=== PATIENT | female | born 1940 | race Caucasian/White ===

== ENCOUNTER 2022-08-16 17:41 | Inpatient (IN) | payer MEDICARE, BC ==
[2022-08-16] MEDS ORDERED: Sodium Chloride 0.9% 1,000 ML IV ONE (17:50)
[2022-08-16] MEDS ORDERED: Pantoprazole 40 MG Vial IVPUSH ONE (17:50)
[2022-08-16] MEDS ORDERED: Lactated Ringers 1,000 ML IV ONE ×2 (17:50→18:41)
[2022-08-16] MEDS ORDERED: Ondansetron 4 MG/2 ML SDV IVPUSH ONE (17:53)
[2022-08-16] MEDS ORDERED: Phytonadione 5 MG in Sodium Chloride 0.9% 50 ML IV ONE (17:57)
[2022-08-16 18:07] LABS: ESTIMATED GFR 38 mL/min (>60)
[2022-08-16] MEDS ORDERED: Phytonadione 10 MG in Sodium Chloride 0.9% 50 ML IV ONE (18:40)
[2022-08-16 19:19] LABS: CORONAVIRUS COVID-19 NAA NEGATIVE (NEGATIVE)
[2022-08-16] MEDS ORDERED: Oseltamivir 75 MG Cap PO ONE (20:43)
[2022-08-16] MEDS ORDERED: Albuterol/Ipratropium 3.0-0.5 MG/3 ML Neb Soln NEB ONE (21:03)
[2022-08-16] MEDS ORDERED: Albuterol/Ipratropium 3.0-0.5 MG/3 ML Neb Soln ONE (21:03)
[2022-08-16] MEDS ORDERED: methylPREDNISolone Sodium Succinate 125 MG/2 ML SDV IVPUSH ONE (21:56)
[2022-08-16] MEDS ORDERED: cefTRIAXone 1 GM Vial IVPUSH SCH (22:00)
[2022-08-17 00:37] LABS: BASE EXCESS VENOUS,POC -3 mmol/L (-2 - 3+); PCO2 VENOUS,POC 41 mmHg (41-51); PH VENOUS,POC 7.35 pH Units (7.32-7.43)
[2022-08-17] MEDS ORDERED: hydrOXYzine HCl 25 MG Tab PO ONE (00:37)
[2022-08-17] MEDS ORDERED: Acetaminophen 500 MG Tab PO ONE (00:37)
[2022-08-17] MEDS ORDERED: cefTRIAXone 1 GM Vial IVPUSH SCH (01:00)
[2022-08-17] MEDS ORDERED: Ondansetron 4 MG/2 ML SDV IVPUSH PRN (01:05)
[2022-08-17] MEDS ORDERED: Magnesium Hydroxide 400 MG/5 ML Susp 30 ML Cup PO PRN (01:06)
[2022-08-17] MEDS ORDERED: Bisacodyl 5 MG Tab PO PRN (01:06)
[2022-08-17] MEDS ORDERED: Oseltamivir 75 MG Cap ONE (02:34)
[2022-08-17] MEDS ORDERED: methylPREDNISolone Sodium Succinate 125 MG/2 ML SDV ONE (02:35)
[2022-08-17] MEDS: Albuterol/Ipratropium 3.0-0.5 MG/3 ML Neb Soln NEB SCH ×4 (03:32→21:16)
[2022-08-17] MEDS ORDERED: methylPREDNISolone Sodium Succinate 125 MG/2 ML SDV IVPUSH SCH (06:00)
[2022-08-17 06:53] LABS: ESTIMATED GFR 50 mL/min (>60)
[2022-08-17] MEDS: Sodium Chloride 0.9% 10 ML Syringe FLUSH PRN ×3 (10:22→19:05)
[2022-08-17] MEDS: Morphine 2 MG/ML SYRINGE IVPUSH PRN ×2 (10:22→16:55)
[2022-08-17] MEDS: methylPREDNISolone Sodium Succinate 125 MG/2 ML SDV IVPUSH SCH ×2 (10:26→19:06)
[2022-08-17] MEDS: Acetaminophen 325 MG Tab PO PRN (18:31)
[2022-08-17] MEDS: Pantoprazole 40 MG Vial IVPUSH SCH (19:06)
[2022-08-17] MEDS ORDERED: Melatonin 3 MG Tab PO PRN (20:48)
[2022-08-17] MEDS: hydrOXYzine HCl 10 MG Tab PO SCH (21:16)
[2022-08-17] MEDS: Oseltamivir 30 MG Cap PO SCH (21:17)
[2022-08-18] MEDS: Morphine 2 MG/ML SYRINGE IVPUSH PRN (00:07)
[2022-08-18] MEDS: Sodium Chloride 0.9% 10 ML Syringe FLUSH PRN ×4 (00:08→20:09)
[2022-08-18] MEDS: Albuterol/Ipratropium 3.0-0.5 MG/3 ML Neb Soln NEB SCH ×4 (03:48→20:12)
[2022-08-18] MEDS: methylPREDNISolone Sodium Succinate 125 MG/2 ML SDV IVPUSH SCH ×3 (03:56→20:08)
[2022-08-18 06:45] LABS: ESTIMATED GFR 64 mL/min (>60)
[2022-08-18] MEDS: Folic Acid 1 MG Tab PO SCH (08:13)
[2022-08-18] MEDS: Oseltamivir 30 MG Cap PO SCH ×2 (08:13→20:12)
[2022-08-18] MEDS: Acetaminophen 325 MG Tab PO PRN ×2 (08:15→14:35)
[2022-08-18] MEDS ORDERED: Ezetimibe 10 MG Tab PO SCH (09:00)
[2022-08-18] MEDS ORDERED: Rosuvastatin 10 MG Tab PO SCH (09:00)
[2022-08-18] MEDS ORDERED: Non-Formulary Medication 1 Each (Omeprazole [Omeprazole] 20 MG Cap.Cr) PO SCH (09:00)
[2022-08-18] MEDS: Pantoprazole 40 MG Vial IVPUSH SCH (18:39)
[2022-08-18] MEDS: hydrOXYzine HCl 10 MG Tab PO SCH (20:11)
[2022-08-18] MEDS: rOPINIRole 0.5 MG Tab PO SCH (22:23)
[2022-08-19] MEDS: Albuterol/Ipratropium 3.0-0.5 MG/3 ML Neb Soln NEB SCH ×3 (03:09→15:58)
[2022-08-19] MEDS: methylPREDNISolone Sodium Succinate 125 MG/2 ML SDV IVPUSH SCH (03:10)
[2022-08-19] MEDS: Sodium Chloride 0.9% 10 ML Syringe FLUSH PRN ×2 (03:14→17:56)
[2022-08-19 07:21] LABS: ESTIMATED GFR 57 mL/min (>60)
[2022-08-19] MEDS ORDERED: Iron Polysaccharides Complex 150 MG Cap PO SCH (09:00)
[2022-08-19] MEDS ORDERED: Lactated Ringers 1,000 ML IV SCH (11:30)
[2022-08-19] MEDS: Sodium Chloride 0.65% Nasal Spray 45 ML Bottle NASBOTH PRN (11:32)
[2022-08-19] MEDS ORDERED: Propofol 200 MG/20 ML SDV IV ONE (11:43)
[2022-08-19] MEDS: Folic Acid 1 MG Tab PO SCH (12:47)
[2022-08-19] MEDS: Oseltamivir 30 MG Cap PO SCH ×2 (12:47→21:55)
[2022-08-19] MEDS: Pantoprazole 40 MG Vial IVPUSH SCH (17:56)
[2022-08-19] MEDS: rOPINIRole 0.5 MG Tab PO SCH (21:54)
[2022-08-19] MEDS: hydrOXYzine HCl 10 MG Tab PO SCH (21:55)
[2022-08-20 07:05] LABS: ESTIMATED GFR 64 mL/min (>60)
[2022-08-20] MEDS: Oseltamivir 30 MG Cap PO SCH ×2 (08:29→20:56)
[2022-08-20] MEDS: Folic Acid 1 MG Tab PO SCH (08:30)
[2022-08-20] MEDS: Iron Polysaccharides Complex 150 MG Cap PO SCH ×2 (08:30→20:56)
[2022-08-20] MEDS: Pantoprazole 40 MG Tab.CR PO SCH (08:37)
[2022-08-20] MEDS: Polyethylene Glycol 3350 Powder 17 GM Packet PO SCH (08:37)
[2022-08-20] MEDS: Sucralfate 1 GM Tab PO SCH ×3 (10:53→20:59)
[2022-08-20] MEDS: rOPINIRole 0.5 MG Tab PO SCH (20:56)
[2022-08-20] MEDS: Sodium Chloride 0.65% Nasal Spray 45 ML Bottle NASBOTH PRN (20:58)
[2022-08-21] MEDS: Sucralfate 1 GM Tab PO SCH ×4 (06:36→20:35)
[2022-08-21] MEDS: Iron Polysaccharides Complex 150 MG Cap PO SCH ×2 (08:15→20:40)
[2022-08-21] MEDS: Oseltamivir 30 MG Cap PO SCH ×2 (08:15→20:35)
[2022-08-21] MEDS: Folic Acid 1 MG Tab PO SCH (08:16)
[2022-08-21] MEDS: Pantoprazole 40 MG Tab.CR PO SCH (08:17)
[2022-08-21] MEDS: Polyethylene Glycol 3350 Powder 17 GM Packet PO SCH (08:17)
[2022-08-21] MEDS ORDERED: Mineral Oil/Petrolatum/Phenylephrine/Shark Liver Oil Oint 57 GM Tube RECTAL PRN (08:21)
[2022-08-21] MEDS: rOPINIRole 0.5 MG Tab PO SCH (20:35)
[2022-08-22] MEDS: Sucralfate 1 GM Tab PO SCH (06:31)
[2022-08-22] MEDS: Folic Acid 1 MG Tab PO SCH (08:31)
[2022-08-22] MEDS: Oseltamivir 30 MG Cap PO SCH (08:31)
[2022-08-22] MEDS: Iron Polysaccharides Complex 150 MG Cap PO SCH (08:35)
[2022-08-22] MEDS: Pantoprazole 40 MG Tab.CR PO SCH (08:35)
[2022-08-22] MEDS: Polyethylene Glycol 3350 Powder 17 GM Packet PO SCH (08:35)
[2022-08-23] MEDS ORDERED: Methotrexate 2.5 MG Tab PO SCH (09:00)
== END 2022-08-22 10:56 | disposition home or self-care (01) | DRG 378 ==
LOC: FB.ED 17:41 → FB.MS 08-17 00:05
PROVIDERS: ADMIT Family Medicine; ATTEND Family Medicine
PROC: 30233N1 Transfusion of Nonautologous Red Blood Cells into Peripheral Vein, Percutaneous Approach (ICD-10-PCS; principal; 2022-08-17)
PROC: 0DB78ZX Excision of Stomach, Pylorus, Via Natural or Artificial Opening Endoscopic, Diagnostic (ICD-10-PCS; 2022-08-19)
DX: K25.4 Chronic or unspecified gastric ulcer with hemorrhage (principal); I48.11 Longstanding persistent atrial fibrillation; K26.4 Chronic or unspecified duodenal ulcer with hemorrhage; E88.09 Other disorders of plasma-protein metabolism, not elsewhere classified; E77.8 Other disorders of glycoprotein metabolism; I48.91 Unspecified atrial fibrillation; R05.8 Other specified cough; D50.0 Iron deficiency anemia secondary to blood loss (chronic); J10.1 Influenza due to other identified influenza virus with other respiratory manifestations; Z51.5 Encounter for palliative care; I25.10 Atherosclerotic heart disease of native coronary artery without angina pectoris; L40.9 Psoriasis, unspecified; G25.81 Restless legs syndrome; R79.1 Abnormal coagulation profile; E78.00 Pure hypercholesterolemia, unspecified; K21.9 Gastro-esophageal reflux disease without esophagitis; M19.90 Unspecified osteoarthritis, unspecified site; E66.9 Obesity, unspecified; F17.210 Nicotine dependence, cigarettes, uncomplicated; Z20.822 Contact with and (suspected) exposure to COVID-19; E86.0 Dehydration; K44.9 Diaphragmatic hernia without obstruction or gangrene; Z86.19 Personal history of other infectious and parasitic diseases; Z98.41 Cataract extraction status, right eye; Z79.02 Long term (current) use of antithrombotics/antiplatelets; Z79.01 Long term (current) use of anticoagulants; Z86.711 Personal history of pulmonary embolism; Z79.899 Other long term (current) drug therapy; Z88.6 Allergy status to analgesic agent; Z88.1 Allergy status to other antibiotic agents; Z88.8 Allergy status to other drugs, medicaments and biological substances; Z88.2 Allergy status to sulfonamides; Z86.74 Personal history of sudden cardiac arrest; Z95.5 Presence of coronary angioplasty implant and graft; Z87.440 Personal history of urinary (tract) infections; Z98.42 Cataract extraction status, left eye; Z98.890 Other specified postprocedural states; J41.0 Simple chronic bronchitis; Z66 Do not resuscitate; Z68.30 Body mass index [BMI] 30.0-30.9, adult; I95.9 Hypotension, unspecified
CPT/HCPCS: 00731-QZ; 0241U; 36415; 36430; 71045; 80048; 80053; 81001; 82272; 83605; 84484; 85018; 85025; 85610; 86140; 86850; 86900; 86901; 86920; 86922; 87040; 88305; 88342; 93005; 94640; 97116-GP; 97161-GP; 97165-GO; 97530-GO; 99223; 99232; 99239; A9270-GY; C9113; J0696; J2270; J2405; J2704; J2930; J3430; J3490; J7030; J7120; J7620; P9016; P9017